=== PATIENT | female | born 1960 | race Native Hawaiian/Other Pacific Islander ===

== ENCOUNTER 2016-11-27 07:53 | Outpatient (CLI) | payer BC ==
[2016-11-27 08:10] LABS: PLATELET COUNT 215 K/uL (152-353)
[2016-11-27 08:36] LABS: POTASSIUM 4.1 mmol/L (3.6-5.2); SODIUM 137 mmol/L (136-145)
== END 2016-11-27 19:26 | disposition home or self-care (01) ==
LOC: LABW 07:53
PROVIDERS: Nurse Practitioner
DX: R73.9 Hyperglycemia, unspecified (principal); R53.83 Other fatigue; E78.00 Pure hypercholesterolemia, unspecified
CPT/HCPCS: 36415; 80053; 80061; 82607; 83036; 84443; 85027

== ENCOUNTER 2017-04-28 09:03 | Outpatient (CLI) | payer BC ==
[2017-04-28 09:29] LABS: PLATELET COUNT 220 K/uL (152-353)
[2017-04-28 09:58] LABS: POTASSIUM 3.9 mmol/L (3.6-5.2); SODIUM 132 mmol/L (136-145)
== END 2017-04-28 18:56 | disposition home or self-care (01) ==
LOC: LABW 09:03
PROVIDERS: Internal Medicine
DX: R10.31 Right lower quadrant pain (principal)
CPT/HCPCS: 36415; 80053; 85027; Q9963